=== PATIENT | female | born 1995 | race Caucasian/White ===

== ENCOUNTER → 2022-02-24 | Outpatient (CLI) | payer BC, SELFPAY ==
[2022-02-24 15:58] LABS: Absolute Neutrophil Count 6.5 X10^3/uL (2.0-7.7); Basophil# 0.04 X10^3/uL; Basophil% 0.4 % (0-1); Eosinophil# 0.07 X10^3/uL; Eosinophils% 0.7 % (0-5); Hematocrit 39.1 % (37-47); Hemoglobin 14.1 g/dL (12.0-15.0); Lymphocyte % 27.4 % (19-41); Mean Corp Hgb Conc 36.1 g/dL (32-36); Mean Corpuscular Volume 91.6 fL (81-99); Mean Platelet Vol. 10.1 fl (6.2-12.0); Monocyte# 0.75 X10^3/uL; Monocyte% 7.3 % (0-10); NRBC Flagged by Analyzer 0 % (0-5); Neutrophil # 6.52 X10^3/uL (2.7-7.7); Neutrophil % 63.9 % (47-70); Platelet Count 310 K/mm3 (150-450); RBC Distribution Width CV 11.5 % (11.6-14.6); RBC Distribution Width SD 38.4 fl (35.1-43.9); Red Blood Count 4.27 M/mm3 (4.2-5.4); White Blood Count 10.2 K/mm3 (4.4-11.0)
[2022-02-25 00:34] LABS: HIV - WCH Non-Reactive (Nonreactive); Hepatitis B Surface Antigen Non-Reactive (Nonreactive); Hepatitis C Antibody Non-Reactive (Nonreactive); Rubella IgG Reactive (Nonreactive); Syphilis Antibodies Non-reactive
[2022-02-26 10:49] LABS: V-Zoster IgG (Immunity) 1725 index (Immune >165)
[2022-02-26 22:06] LABS: Chlamydia By Nucleic Acid AMP Negative (Negative)
[2022-02-27 07:17] LABS: Gonococcus By Nucleic Acid AMP Negative (Negative)
[2022-03-02 15:56] LABS: HPV Reflexed? NOT INDICATED
== END | disposition home or self-care (01) ==
LOC: WOBLAB 14:49
PROVIDERS: Visit Provider Obstetrics & Gynecology
DX: Z34.81 Encounter for supervision of other normal pregnancy, first trimester (principal); N91.2 Amenorrhea, unspecified
CPT/HCPCS: 36415; 85025; 86703; 86762; 86780; 86787; 86803; 87086; 87088; 87340; 87491; 87591; 88175; G0145

== ENCOUNTER → 2022-06-28 | Outpatient (CLI) | payer BC, SELFPAY ==
[2022-06-28 16:08] LABS: Hematocrit 36.6 % (37-47); Hemoglobin 12.8 g/dL (12.0-15.0); Mean Corpuscular Hgb 32.7 pg (27.0-32.0); Mean Corpuscular Volume 93.4 fL (81-99); Mean Platelet Vol. 9.5 fl (6.2-12.0); Platelet Count 316 K/mm3 (150-450); RBC Distribution Width CV 12.4 % (11.6-14.6); RBC Distribution Width SD 42.6 fl (35.1-43.9); Red Blood Count 3.92 M/mm3 (4.2-5.4); White Blood Count 11.5 K/mm3 (4.4-11.0)
[2022-06-28 17:03] LABS: Glucose Challenge Gest 1H 50g 144 mg/dL (70-140)
== END | disposition home or self-care (01) ==
LOC: LABSPEC 15:15
PROVIDERS: Visit Provider Student in an Organized Health Care Education/Training Program
DX: Z34.82 Encounter for supervision of other normal pregnancy, second trimester (principal)
CPT/HCPCS: 36415; 82950; 85027

== ENCOUNTER → 2022-06-30 | Outpatient (CLI) | payer BC, SELFPAY ==
[2022-06-30 09:18] LABS: Glucose GTT-Gestation. Fasting 87 mg/dL (<105)
[2022-06-30 10:20] LABS: Glucose GTT-Gestational 1 Hr 150 mg/dL (<190)
[2022-06-30 11:43] LABS: Glucose GTT-Gestational 2 Hr 107 mg/dL (<165)
[2022-06-30 13:32] LABS: Glucose GTT-Gestational 3 Hr 91 L (<145)
== END | disposition home or self-care (01) ==
LOC: WOBLAB 08:37
PROVIDERS: Visit Provider Student in an Organized Health Care Education/Training Program
DX: O24.912 Unspecified diabetes mellitus in pregnancy, second trimester (principal); Z3A.00 Weeks of gestation of pregnancy not specified
CPT/HCPCS: 36415; 82951; 82952

== ENCOUNTER → 2022-09-06 | Outpatient (CLI) | payer BC, SELFPAY ==
[2022-09-06 10:07] LABS: Absolute Lymphocyte Count 1.62 X10^3/uL (0.83-4.51); Absolute Neutrophil Count 5.9 X10^3/uL (2.0-7.7); Basophil# 0.03 X10^3/uL; Basophil% 0.4 % (0-1); Eosinophil# 0.05 X10^3/uL; Eosinophils% 0.6 % (0-5); Hemoglobin 14.2 g/dL (12.0-15.0); Lymphocyte # 1.62 X10^3/ul (0.83-4.51); Lymphocyte % 19.7 % (19-41); Mean Corp Hgb Conc 34.6 g/dL (32-36); Mean Corpuscular Hgb 32.9 pg (27.0-32.0); Mean Corpuscular Volume 94.9 fL (81-99); Mean Platelet Vol. 9.7 fl (6.2-12.0); Monocyte# 0.58 X10^3/uL; NRBC Flagged by Analyzer 0 % (0-5); Neutrophil # 5.93 X10^3/uL (2.7-7.7); Neutrophil % 71.9 % (47-70); Platelet Count 245 K/mm3 (150-450); RBC Distribution Width CV 12.1 % (11.6-14.6); RBC Distribution Width SD 42.1 fl (35.1-43.9); Red Blood Count 4.32 M/mm3 (4.2-5.4); White Blood Count 8.2 K/mm3 (4.4-11.0)
[2022-09-06 11:23] LABS: Syphilis Antibodies Non-reactive
== END | disposition home or self-care (01) ==
LOC: WOBLAB 09:32
PROVIDERS: PCP Student in an Organized Health Care Education/Training Program; Visit Provider Student in an Organized Health Care Education/Training Program
DX: Z34.83 Encounter for supervision of other normal pregnancy, third trimester (principal)
CPT/HCPCS: 36415; 85025; 86780; 87081

== ENCOUNTER 2022-10-05 10:47 | Inpatient (IN) | payer BC, SELFPAY ==
[2022-10-05] VITALS (20 sets, daily range): BP systolic 110–133; BP diastolic 69–86; PULSE 65–85; TEMP 36.4–37.1; O2SAT 98; BMI 29.7
[2022-10-05 10:38] LABS: ROM Internal Control Test YES-OK TO RESULT pt. (Internal QC)
[2022-10-05 10:40] LABS: ROM Patient Test POSITIVE (Negative)
--- NOTE | 2022-10-05 11:43 | PCM.HP.BLA ---
History and Physical Date of Admission: 10/05/22 HPI: 27-year-old G1, P0 at 40/2 weeks, MILY 10/03/2022 by LMP, admitted for prelabor rupture of membranes. Patient noted some leaking last night and 1 hour of contractions. She is now feeling some contractions here today. Reports spotting. Reports movement. Denies headache or vision changes, chest pain or shortness of breath, nausea or vomiting, fevers or chills, diarrhea constipation. complicated by: Impaired glucose tolerance with failed 1 hour, normal 3-hour glucose tolerance test. 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: Denies Surgical history: Denies Medications: vitamin Allergies: Amoxicillin causes swelling Family history: Denies history of blood clots or bleeding disorders Social history: Denies tobacco, alcohol, drug use Review of system: Negative otherwise stated above Physical exam: Blood pressure 119/85, pulse 85, temp 98.8 ?F General: No acute distress, comfortable in bed HEENT: Normal cephalic/atraumatic, PERRLA Cardiorespiratory: No increased effort Abdomen: Soft, nontender, gravid Extremities: No edema Neurologic: Cranial nerves II through XII grossly intact, no focal deficits Musculoskeletal: Moves all extremities equally Cervical exam: In office around 938 closed/thick/high, small amount of pooling in the vagina scant blood heart rate:140/mod bren/+accel/no decel [place]: q5 Assessment/plan: 27-year-old G1, P0 at 40/2 weeks, MILY 10/03/2022 by LMP, admitted for prelabor rupture of membranes. complicated by: Impaired glucose tolerance with failed 1 hour, normal 3-hour glucose tolerance test. ?Admit for rupture of membranes. Will recheck cervix around 1330. If not making cervical change, will augment with Pitocin. ?Bedside ultrasound in office today confirms cephalic position. ? GBS negative ? Discussed results and plan of care with patient and bedside RN. All questions answered.
[2022-10-05 11:51] LABS: Absolute Lymphocyte Count 2.48 X10^3/uL (0.83-4.51); Absolute Neutrophil Count 7.4 X10^3/uL (2.0-7.7); Basophil# 0.03 X10^3/uL; Basophil% 0.3 % (0-1); Eosinophil# 0.04 X10^3/uL; Eosinophils% 0.4 % (0-5); Hematocrit 39.8 % (37-47); Hemoglobin 14.4 g/dL (12.0-15.0); Lymphocyte # 2.48 X10^3/ul (0.83-4.51); Mean Corp Hgb Conc 36.2 g/dL (32-36); Mean Corpuscular Hgb 33.5 pg (27.0-32.0); Mean Corpuscular Volume 92.6 fL (81-99); Mean Platelet Vol. 10.1 fl (6.2-12.0); Monocyte# 0.76 X10^3/uL; Monocyte% 7.1 % (0-10); NRBC Flagged by Analyzer 0 % (0-5); Neutrophil # 7.43 X10^3/uL (2.7-7.7); Neutrophil % 68.8 % (47-70); Platelet Count 247 K/mm3 (150-450); RBC Distribution Width CV 12.1 % (11.6-14.6); RBC Distribution Width SD 40.6 fl (35.1-43.9); White Blood Count 10.8 K/mm3 (4.4-11.0)
[2022-10-05 12:44] LABS: Syphilis Antibodies Non-reactive
[2022-10-05] MEDS: Lactated Ringers 1,000 ML 50 ML IV (14:15)
[2022-10-05] MEDS: Oxytocin 15 Units/NS 250ml 15 UNITS/250 ML IV.SOLN 2 UNITS IV (14:20)
--- NOTE | 2022-10-05 16:42 | PN.OBGYN_ITS ---
Subjective Subjective Comfortable on yoga ball at bedside Objective Data Objective Data Vital Signs: Vital Signs Temp Pulse BP 98.4 F 84 113/69 10/05/22 16:09 10/05/22 12:35 10/05/22 12:35 Weight: 76.204 kg Body Mass Index (BMI) 29.7 Intake & Output: Intake and Output for Last 24 Hours 10/03/22 10/04/22 10/05/22 23:59 23:59 23:59 Intake Total 5.06 / 5.06 Output Total 600 / 600 Balance -594.94 / -594.94 Lab / Micro Data Attestation: I reviewed the patient's lab results. Result Diagrams: 10/05/22 11:15 Labs: Laboratory Results - last 24 hr 10/05/22 10:10: Vag Amniotic Fld Detect POSITIVE H 10/05/22 11:15: WBC 10.8, RBC 4.30, Hgb 14.4, Hct 39.8, MCV 92.6, MCH 33.5 H, MCHC 36.2 H, RDW Std Deviation 40.6, RDW Coeff of [place] 12.1, Plt Count 247, MPV 10.1, Immature Gran % (Auto) 0.400, Neut % (Auto) 68.8, Lymph % (Auto) 23.0, [place] % (Auto) 7.1, Eos % (Auto) 0.4, Baso % (Auto) 0.3, Absolute Neuts (auto) 7.4, Absolute Lymphs (auto) 2.48, Nucleated RBC % 0 10/05/22 11:15: Blood Type O POSITIVE, Antibody Screen NEGATIVE 10/05/22 11:15: Syphilis Total Ab Non-reactive NST FHR Rate Baby A Baseline: 150 Variability:: Moderate Accelerations:: 15 x 15 Decelerations:: None FHR Category:: Category I Uterine Activity:: q3min Assessment & Plan (1) Spontaneous rupture of membranes: PLAN: 27-year-old G1 at 40/2 weeks admitted for prelabor rupture of membranes. Now being augmented with Pitocin. 1 cm at last cervical exam. Titrate Pitocin as tolerated, category 1 tracing.
[2022-10-05] MEDS: 0.9% Saline Lock 10 ML Syringe IV (23:41)
[2022-10-05] MEDS: fentaNYL 100 MCG/2 ML Ampul IV (23:41)
[2022-10-06] VITALS (46 sets, daily range): BP systolic 87–154; BP diastolic 43–91; PULSE 64–115; RESP 15–18; TEMP 35.6–37.4; O2SAT 97–100
[2022-10-06] MEDS: Ondansetron 4 MG/2 ML Vial IV ×2 (01:38→15:30)
[2022-10-06] MEDS: LACTATED RINGERS 500 ML 999 ML IV ×2 (02:10→03:47)
[2022-10-06] MEDS: Lactated Ringers 1,000 ML 50 ML IV (02:11)
[2022-10-06] MEDS: fentaNYL-bupivacaine (epidural) 100 ML BAG EPIDURAL (05:03)
[2022-10-06] MEDS: Amnioinfusion- 0.9% NS 1,000 ML IV.SOLN. INTRA-UTER (06:06)
--- NOTE | 2022-10-06 06:42 | PN.OBGYN_ITS ---
Subjective Subjective Patient restful in bed after epidural. Objective Data Objective Data Vital Signs: Vital Signs Temp Pulse BP Pulse Ox 98.4 F 86 99/61 100 10/06/22 06:40 10/06/22 06:40 10/06/22 06:40 10/06/22 05:30 Weight: 76.204 kg Body Mass Index (BMI) 29.7 Intake & Output: Intake and Output for Last 24 Hours 10/04/22 10/05/22 10/06/22 23:59 23:59 23:59 Intake Total 16.86 / 16.86 1830.40 / 1830.40 Output Total 1850 / 1850 Balance -1833.14 / -1833.14 1830.40 / 1830.40 Lab / Micro Data Result Diagrams: 10/05/22 11:15 Labs: Laboratory Results - last 24 hr 10/05/22 10:10: Vag Amniotic Fld Detect POSITIVE H 10/05/22 11:15: WBC 10.8, RBC 4.30, Hgb 14.4, Hct 39.8, MCV 92.6, MCH 33.5 H, MCHC 36.2 H, RDW Std Deviation 40.6, RDW Coeff of [place] 12.1, Plt Count 247, MPV 10.1, Immature Gran % (Auto) 0.400, Neut % (Auto) 68.8, Lymph % (Auto) 23.0, [place] % (Auto) 7.1, Eos % (Auto) 0.4, Baso % (Auto) 0.3, Absolute Neuts (auto) 7.4, Absolute Lymphs (auto) 2.48, Nucleated RBC % 0 10/05/22 11:15: Blood Type O POSITIVE, Antibody Screen NEGATIVE 10/05/22 11:15: Syphilis Total Ab Non-reactive Physical Exam Const alert, oriented x3 and no apparent distress Resp normal respiratory effort GI soft to palpation, non-tender and non-distended Inspection: gravid Narrative: 4.5 cm/60/-3, confirmed cephalic by BSUS. caput palpated towards maternal right, sutures at maternal left. Extremity no pedal edema Psych mental status grossly normal and affect normal NST FHR Rate Baby A Baseline: 150 Variability:: Moderate Accelerations:: 15 x 15 Decelerations:: Early, Late and Variable FHR Category:: Category II Uterine Activity:: q5 min Assessment & Plan (1) Spontaneous rupture of membranes: PLAN: Persistent category 2 heart rate tracing. We have tried decreasing Pitocin, amnioinfusion, turning Pitocin off. Without resolution of decelerations. heart rate decelerations vary between early decelerations, but more importantly persistent late and variable decelerations. We will plan for section due to intolerance of labor remote from delivery. All risk, benefits, alternatives discussed with the patient. Risk include but are not limited to: Risk of bleeding to the point of transfusion, infection, injury to surrounding tissue including bowel/bladder potentially requiring prolonged Matthews catheter use, VTE, ICU admission. Patient aware and consented. All questions answered. Gentamicin, clindamycin, azithromycin preoperatively.
[2022-10-06] MEDS: Acetaminophen 500 MG Tablet PO (06:47)
[2022-10-06] MEDS: Sodium Citrate/Citric Acid 30 ML UDC PO (06:49)
[2022-10-06] MEDS: Clindamycin 900 MG/50 ML BAG 75 MG IV (07:05)
--- NOTE | 2022-10-06 07:46 | EX.PCM.OBRPT ---
Maternal Data Information Final MILY: 10/03/22 Details Operative Information Date of Procedure: 10/06/22 Pre-Operative Diagnosis: Beatty intrauterine at term, intolerance of labor remote from delivery Post-Operative Diagnosis: Beatty intrauterine at term, intolerance of labor remote from delivery Indications Narrative: section due to intolerance of labor remote from delivery.? All risk, benefits, alternatives discussed with the patient.? Risk include but are not limited to: Risk of bleeding to the point of transfusion, infection, injury to surrounding tissue including bowel/bladder potentially requiring prolonged Matthews catheter use, VTE, ICU admission.? Patient aware and consented.? All questions answered.? Gentamicin, clindamycin, azithromycin preoperatively. Classification: RAVI Procedure Type: low transverse Type of Anesthesia: Epidural Estimated Blood Loss: 700cc Fluids Replaced: 1000cc Findings Description of Procedure: Procedure: Patient taken the operating room and epidural dose. Patient placed in supine position with left lateral tilt. Prepped and draped in usual sterile fashion. Pfannenstiel skin incision made with scalpel and carried down through subcutaneous tissue. Fascia nicked on either side of the midline with scalpel and extended bluntly. Lyssa clamps placed at the superior fascial edge was tented up and underlying rectus muscles were dissected off bluntly and sharply at midline. Lyssa clamps moved to the inferior fascial edge which was tented up underlying rectus muscles were tented up and the rectus muscles were dissected off bluntly and sharply at midline using Pereira scissors. Rectus muscles superiorly using a hemostat, peritoneum entered bluntly. Bladder blade placed. Low transverse uterine incision made with scalpel. Extended bluntly. Hand placed into the uterine cavity and head elevated to the hysterotomy. Bladder blade removed. Head delivered followed by body with the assistance of gentle fundal pressure. Nuchal cord x3 reduced, loose. Cord clamped and cut. Baby to nursing. Spontaneous delivery of placenta. Uterus exteriorized and cleared of all clots. Hysterotomy closed with a running stitch followed by second vertical imbricating stitch. Hemostatic with 1 ddfxyo-le-meqop suture. Uterus replaced in the abdominal cavity and hemostasis confirmed. Eleni placed over the hysterotomy. Peritoneum closed with a running stitch. Muscle reapproximated with horizontal mattress suture. Fascia closed with running stitch. Subcutaneous tissue irrigated. Skin closed with running subcuticular stitch. At the end of the procedure all needle, lap, sponge counts were correct. UOP: 200cc clear urine Infant A Gender: Male (1 minute): 8 (5 minute): 9 Complications Complications: None
[2022-10-06] MEDS: Oxytocin 15 Units/NS 250ml 15 UNITS/250 ML IV.SOLN 83 UNITS IV (09:00)
[2022-10-06] MEDS: Ketorolac 30 MG/ML Syringe IV ×3 (09:15→21:41)
--- NOTE | 2022-10-06 10:10 | NURSING ---
Epidural catheter removed with no resistance - blue tip intact.
[2022-10-06] MEDS: Acetaminophen 500 MG Tablet 1000 MG PO ×2 (12:20→18:18)
[2022-10-06] MEDS: 0.9% Saline Lock 10 ML Syringe IV (12:20)
[2022-10-06] MEDS: Lactated Ringers 1,000 ML 100 ML IV (12:23)
--- NOTE | 2022-10-06 15:20 | NURSING ---
Pt became nauseas and vomited 300 mls when she sat at the edge of her bed - BP stable - only able to have her take a couple steps at the side of the bed before having to have her sit back down.
--- NOTE | 2022-10-06 18:27 | NURSING ---
This RN helped pt up to bathroom - pt became lightheaded and nauseous again - got pt back to bed and symptoms resolved.
[2022-10-06] MEDS: Enoxaparin 40 MG/0.4 ML Syringe SC (20:29)
[2022-10-07] VITALS: BP 113/71; PULSE 91; RESP 16; TEMP 36.6; O2SAT 98
[2022-10-07 01:00] VITALS: BP 98/69; PULSE 75; RESP 18; TEMP 36.8; O2SAT 97
[2022-10-07] MEDS: 0.9% Saline Lock 10 ML Syringe IV (03:32)
[2022-10-07] MEDS: Ketorolac 30 MG/ML Syringe IV (03:32)
[2022-10-07 03:33] VITALS: BP 111/63; PULSE 88; RESP 15; TEMP 36.6; O2SAT 100
[2022-10-07 05:20] LABS: Hematocrit 33.6 % (37-47); Hemoglobin 11.7 g/dL (12.0-15.0); Mean Corp Hgb Conc 34.8 g/dL (32-36); Mean Corpuscular Hgb 33.2 pg (27.0-32.0); Mean Corpuscular Volume 95.5 fL (81-99); Mean Platelet Vol. 9.9 fl (6.2-12.0); Platelet Count 199 K/mm3 (150-450); RBC Distribution Width CV 12.4 % (11.6-14.6); RBC Distribution Width SD 42.5 fl (35.1-43.9); Red Blood Count 3.52 M/mm3 (4.2-5.4); White Blood Count 17.9 K/mm3 (4.4-11.0)
[2022-10-07] MEDS: Acetaminophen 500 MG Tablet 1000 MG PO ×3 (06:00→12:16)
--- NOTE | 2022-10-07 08:15 | DS.PCM_ITS ---
Discharge Summary Date of Admission: 10/05/22 Date of Discharge: 10/07/22 Summary: Patient arrived on 10/05/2022 with rupture membranes. Nonreassuring heart tones were noted and patient subsequently had primary section on 10/06/2022. Routine postoperative recovery. Discharge home on 10/07/2022 Meaningful Use Info Meaningful Use Diagnoses (Choose all that apply): None applicable Discharge Plan Admission Admit Date/Time: 10/05/22 10:47 Primary Reason for Your Visit: Spontaneous rupture membranes Attending Provider: Katy Kendrick Primary Care Provider: Katy Kendrick Instructions Additional Instructions / Restrictions: Regular diet. Okay to shower. No tub baths for 2 weeks. No lifting over 25 pounds for 2 to 3 weeks. No intercourse for 6 to 8 weeks. Call if fevers, chills, chest pain, shortness of breath. Follow-up 2 weeks postoperatively Discharge Orders/Prescriptions Prescriptions: New oxycodone 5 mg Tablet 5 mg PO Q6H PRN PRN (Reason: Pain Score 4-10/10) 4 Days Qty: 14 0RF Continued Prena1 True 30 mg iron- 1.4 mg-300 mg Combo Pack 1 pkg PO DAILY Discontinued [place] Oil 1,000 mg Capsule 1 cap PO DAILY Referrals / Follow Up: Katy Kendrick DO [Primary Care Provider] - Disposition Disposition (needs filled in before D/C Order can be placed): Home, Self Care
--- NOTE | 2022-10-07 08:17 | PN.OBGYN_ITS ---
Subjective Subjective No overnight complaints Objective Data Objective Data Vital Signs: Vital Signs Temp Pulse Resp BP Pulse Ox O2 Del Method 98 F 88 15 111/63 100 Room Air 10/07/22 03:33 10/07/22 03:33 10/07/22 03:33 10/07/22 03:33 10/07/22 03:33 10/07/22 03:33 Oxygen Delivery Method Room Air Weight: 168 lb Body Mass Index (BMI) 29.7 Intake & Output: Intake and Output for Last 24 Hours 10/05/22 10/06/22 10/07/22 23:59 23:59 23:59 Intake Total 16.86 / 16.86 3892.98 / 3892.98 Output Total 1850 / 1850 2415 / 2415 700 / 700 Balance -1833.14 / -1833.14 1477.98 / 1477.98 -700 / -700 Lab / Micro Data Result Diagrams: 10/07/22 05:07 Labs: Laboratory Results - last 24 hr 10/07/22 05:07: WBC 17.9 H, RBC 3.52 L, Hgb 11.7 L, Hct 33.6 L, MCV 95.5, MCH 33.2 H, MCHC 34.8, RDW Std Deviation 42.5, RDW Coeff of [place] 12.4, Plt Count 199, MPV 9.9 Physical Exam Const alert, oriented x3, no apparent distress, average body habitus, healthy appearing and well nourished HEENT normocephalic and moist oral mucous membranes Eyes PERRL Neck full ROM Resp normal respiratory effort, no retractions and no use of accessory muscles GI GI Narrative: Soft, nontender, bandage clean dry and intact Extremity normal to inspection, full ROM and no clubbing, cyanosis or edema Neuro moves all extremities and no focal motor deficits Psych mental status grossly normal, affect normal, speech normal and activity/motor behavior normal Assessment & Plan (1) delivery delivered: PLAN: Postop day 1 status post primary section for nonreassuring heart tones. Breast-feeding. Pain well controlled. Okay to discharge home today if okay with cyber security administrator
[2022-10-07 08:40] VITALS: BP 105/64; PULSE 96; RESP 18; TEMP 36.7
[2022-10-07] MEDS: Ibuprofen 600 MG Tablet PO (10:15)
[2022-10-07] MEDS: Senna/Docusate Sodium 1 Tablet PO (10:46)
[2022-10-07 13:34] VITALS: BP 98/69; PULSE 75; RESP 18; TEMP 36.7
== END 2022-10-07 14:15 | disposition home or self-care (01) | DRG 788 ==
LOC: WPOUT 10:49 → WP 10:49
PROVIDERS: Admitting Provider Student in an Organized Health Care Education/Training Program; PCP Student in an Organized Health Care Education/Training Program; Referring Provider Student in an Organized Health Care Education/Training Program; Visit Provider Student in an Organized Health Care Education/Training Program
DX: O76 Abnormality in fetal heart rate and rhythm complicating labor and delivery (principal); O42.92 Full-term premature rupture of membranes, unspecified as to length of time between rupture and onset of labor; O69.81X0 Labor and delivery complicated by cord around neck, without compression, not applicable or unspecified; Z3A.40 40 weeks gestation of pregnancy; Z37.0 Single live birth
CPT/HCPCS: 59025; 59050; 76815; 84112; 85025; 85027; 86780; 86850; 86900; 86901; 99221; J7030; J7120; A4216; G0378; J2405

== ENCOUNTER → 2023-08-18 | Outpatient (CLI) | payer OTHER, SELFPAY ==
--- OUTSIDE RECORDS SUMMARY | 2023-08-18 18:29 | XMS RPT_ITS | CCD ---
Author Name Unknown Address [address] [place] [address] Organization [facility] Care Team Providers Care Numerical Control Operator Name Role Phone CHRISTOPHER GALLARDO Unavailable Unavailable CALVIN, DASHAWN Bills Unavailable Unavailabl e CALVIN, [facility] Unavailable Unavailabl e [facility] Unavailable Unavailable ROB, DR MADAI Lacey Attending Unavaila ble ROB, DR MADAI Lacey Primary Care Unavaila ble ROB, DR MADAI Lacey Admitting Unavaila ble Problems Active Problems Problem Classification Problem Date Documented Da te Episodic/Chronic Unclassified (1 source) Unknown / UNK(Unknown) Onset: 01-22-2017 Unclassified (2 sources) ENCOUNTER FOR SCREENING FOR COVID-19; Translations: [ENCOUNTER FOR SCREENING FOR COVID-19] Onset: 04-09-2021 Past or Other Problems Problem Classification Problem Date Documented Da te Episodic/Chronic Unclassified (1 source) HAND INJ WORK RELATED Onset: 01-22-2017 Unclassified (1 source) ENCOUNTER FOR SCREENING FOR COVID-19; Translations: [ENCOUNTER FOR SCREENING FOR COVID-19] Onset: 04-09-2021 Results Test Name Value Interpretation Reference Range Facil ity Encounters Encounter Date Encounter Type Care Provider Facility Start: 04-09-2021 End: 04-09-[address] MADAI RIVAS [facility] Start: 02-07-2017 Ambulatory [facility] Fa [facility]ility[facility] Start: 01-24-2017 Ambulatory [facility] Start: 01-22-2017 Ambulatory [facility]il [facility] Start: 01-22-2017 End: 01-22-2017 Emergency department patient visit CHRISTOPHER GALLARDO Facility[facility] Payers Date Payer Category Payer Unknown [id number] Unknown [id number] Unknown Summary Purpose Family History No Family History Records FoundNo Family History Records FoundNo Family History Records FoundNo Family History Records Found Advance Directives No Advanced Directives Records FoundNo Advanced Directives Records FoundNo Advanced Directives Records FoundNo Advanced Directives Records Found Additional Source Comments INFORMATION SOURCE (unrecogn ized section and content) DATE CREATED AUTHOR AUTHOR'S ORGANIZ ATION 02/09/2020 [facility] DATE CREATED AUTHOR AUTHOR'S ORGANIZ ATION 04/16/2021 [facility] FOR RECORDS PERTAINING TO PATIENTS WHO ARE OR HAVE BEEN ENROLLED IN A CHEMICAL DEPENDENCY/SUBSTANCEABUSE PROGRAM, SOME INFORMATION MAY BE OMITTED. This clinical summary was aggregated from multiple sources. Caution should be exercised in using it in the provision of clinical care. This summary normalizes information from multiple sources, and as a consequence, information in this document may materially change the coding, format and clinical context of patient data. In addition, data may be omitted in some cases. CLINICAL DECISIONS SHOULD BE BASED ON THE PRIMARY CLINICAL RECORDS. [facility]. provides no warranty or guarantee of the accuracy or completeness of information in this document.
[2023-08-22 22:06] LABS: Chlamydia By Nucleic Acid AMP Negative (Negative); Gonococcus By Nucleic Acid AMP Negative (Negative)
== END | disposition home or self-care (01) ==
LOC: LABSPEC 13:36
PROVIDERS: PCP Student in an Organized Health Care Education/Training Program; Referring Provider Advanced Practice Midwife; Visit Provider Advanced Practice Midwife
DX: Z34.90 Encounter for supervision of normal pregnancy, unspecified, unspecified trimester (principal)
CPT/HCPCS: 87077; 87086; 87088; 87186; 87491; 87591

== ENCOUNTER → 2023-10-10 | Outpatient (CLI) | payer OTHER, SELFPAY ==
[2023-10-10 13:44] LABS: Absolute Lymphocyte Count 2.14 X10^3/uL (0.83-4.51); Basophil# 0.04 X10^3/uL; Basophil% 0.5 % (0-1); Eosinophil# 0.06 X10^3/uL; Eosinophils% 0.7 % (0-5); Hematocrit 38.7 % (37-47); Hemoglobin 13.6 g/dL (12.0-15.0); Lymphocyte # 2.14 X10^3/ul (0.83-4.51); Lymphocyte % 24.7 % (19-41); Mean Corp Hgb Conc 35.1 g/dL (32-36); Mean Corpuscular Hgb 31.7 pg (27.0-32.0); Mean Corpuscular Volume 90.2 fL (81-99); Mean Platelet Vol. 9.6 fl (6.2-12.0); Monocyte# 0.45 X10^3/uL; Monocyte% 5.2 % (0-10); NRBC Flagged by Analyzer 0 % (0-5); Neutrophil # 5.96 X10^3/uL (2.7-7.7); Neutrophil % 68.6 % (47-70); Platelet Count 328 K/mm3 (150-450); RBC Distribution Width CV 12.4 % (11.6-14.6); RBC Distribution Width SD 40.2 fl (35.1-43.9); Red Blood Count 4.29 M/mm3 (4.2-5.4); White Blood Count 8.7 K/mm3 (4.4-11.0)
[2023-10-10 14:51] LABS: HIV - WCH Non-Reactive (Nonreactive); Hepatitis B Surface Antigen Non-Reactive (Nonreactive); Hepatitis C Antibody Non-Reactive (Nonreactive); Rubella IgG Reactive (Nonreactive); Syphilis Antibodies Non-reactive
== END | disposition home or self-care (01) ==
LOC: LAB 12:03
PROVIDERS: Advanced Practice Midwife; Referring Provider Obstetrics & Gynecology; Visit Provider Obstetrics & Gynecology
DX: Z34.90 Encounter for supervision of normal pregnancy, unspecified, unspecified trimester (principal)
CPT/HCPCS: 85025; 86703; 86762; 86780; 86803; 86850; 86900; 86901; 87340

== ENCOUNTER → 2023-12-29 | Outpatient (CLI) | payer OTHER, SELFPAY ==
[2023-12-29 11:28] LABS: Glucose Challenge Gest 1H 50g 114 mg/dL (70-140)
== END | disposition home or self-care (01) ==
LOC: LAB 09:28
PROVIDERS: Referring Provider Advanced Practice Midwife; Visit Provider Advanced Practice Midwife
DX: Z13.1 Encounter for screening for diabetes mellitus (principal)
CPT/HCPCS: 36415; 82950

== ENCOUNTER → 2024-02-29 | Outpatient (CLI) | payer OTHER, SELFPAY | END | disposition home or self-care (01) | PROVIDERS: Referring Provider Advanced Practice Midwife; Visit Provider Advanced Practice Midwife | DX: O09.90 Supervision of high risk pregnancy, unspecified, unspecified trimester (principal); Z3A.00 Weeks of gestation of pregnancy not specified | CPT/HCPCS: 87077; 87081; 87186 ==

== ENCOUNTER → 2024-03-13 | Outpatient (CLI) | payer OTHER, SELFPAY ==
[2024-03-13 12:09] LABS: Absolute Lymphocyte Count 2.63 X10^3/uL (0.83-4.51); Absolute Neutrophil Count 6.9 X10^3/uL (2.0-7.7); Basophil# 0.03 X10^3/uL; Basophil% 0.3 % (0-1); Eosinophil# 0.06 X10^3/uL; Eosinophils% 0.6 % (0-5); Hematocrit 39.2 % (37-47); Hemoglobin 13.6 g/dL (12.0-15.0); Lymphocyte # 2.63 X10^3/ul (0.83-4.51); Lymphocyte % 25.4 % (19-41); Mean Corp Hgb Conc 34.7 g/dL (32-36); Mean Corpuscular Hgb 32.6 pg (27.0-32.0); Mean Platelet Vol. 9.9 fl (6.2-12.0); Monocyte# 0.68 X10^3/uL; Monocyte% 6.6 % (0-10); NRBC Flagged by Analyzer 0 % (0-5); Neutrophil # 6.91 X10^3/uL (2.7-7.7); Neutrophil % 66.5 % (47-70); Platelet Count 261 K/mm3 (150-450); RBC Distribution Width CV 12.4 % (11.6-14.6); RBC Distribution Width SD 42.5 fl (35.1-43.9); Red Blood Count 4.17 M/mm3 (4.2-5.4); White Blood Count 10.4 K/mm3 (4.4-11.0)
[2024-03-13 13:05] LABS: HIV - WCH Non-Reactive (Nonreactive); Syphilis Antibodies Non-reactive
== END | disposition home or self-care (01) ==
LOC: LAB 10:51
PROVIDERS: Referring Provider Advanced Practice Midwife; Visit Provider Advanced Practice Midwife
DX: O09.90 Supervision of high risk pregnancy, unspecified, unspecified trimester (principal); Z3A.00 Weeks of gestation of pregnancy not specified
CPT/HCPCS: 36415; 85025; 86703; 86780

== ENCOUNTER 2024-03-23 00:35 | Inpatient (IN) | payer OTHER, SELFPAY ==
[2024-03-22 23:03] VITALS: PULSE 146; O2SAT 98
[2024-03-22 23:05] VITALS: BP 116/72; PULSE 123
[2024-03-22 23:08] VITALS: PULSE 120; O2SAT 99
[2024-03-22 23:13] VITALS: PULSE 112; O2SAT 100
[2024-03-22 23:20] VITALS: BMI 29.7
[2024-03-22] MEDS: LACTATED RINGERS 500 ML 999 ML IV (23:40)
[2024-03-22 23:51] LABS: Absolute Lymphocyte Count 2.24 X10^3/uL (0.83-4.51); Absolute Neutrophil Count 13.3 X10^3/uL (2.0-7.7); Basophil# 0.05 X10^3/uL; Basophil% 0.3 % (0-1); Eosinophil# 0.02 X10^3/uL; Eosinophils% 0.1 % (0-5); Hematocrit 41.6 % (37-47); Hemoglobin 14.8 g/dL (12.0-15.0); Lymphocyte # 2.24 X10^3/ul (0.83-4.51); Lymphocyte % 13.4 % (19-41); Mean Corp Hgb Conc 35.6 g/dL (32-36); Mean Corpuscular Volume 92.7 fL (81-99); Mean Platelet Vol. 9.2 fl (6.2-12.0); Monocyte# 1.05 X10^3/uL; Monocyte% 6.3 % (0-10); NRBC Flagged by Analyzer 0 % (0-5); Neutrophil # 13.33 X10^3/uL (2.7-7.7); Neutrophil % 79.4 % (47-70); Platelet Count 262 K/mm3 (150-450); RBC Distribution Width CV 12.1 % (11.6-14.6); Red Blood Count 4.49 M/mm3 (4.2-5.4); White Blood Count 16.8 K/mm3 (4.4-11.0)
[2024-03-23] VITALS (41 sets, daily range): BP systolic 83–128; BP diastolic 46–80; PULSE 77–136; RESP 14–18; TEMP 36.1–37.7; O2SAT 97–100
--- NOTE | 2024-03-23 00:35 | HP.PCM.OB_ITS ---
HPI - General HPI Narrative MORRIS DESIR, is a 29 F who presents IAL regular ctx painful, with initial tachycardia and mild leukocytosis, tachycardia in the 170s. SROM since midnight. Maternal Data Information MILY Calculator 2 Estimated Delivery Date Method Current WG Current Estimate 03/27/24 LMP (Certain) 39w 3d PFSH PFS Medical History (Updated 03/23/24 @ 01:[address] 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 current occupational exposures/hazards: No pets and animals: Yes pets and animals: dog(s) history of recent travel: Yes details: - July out of state: Yes sexually active: Yes Smoking Status: Former smoker alcohol intake: current alcohol intake frequency: a few times a month substance use type: does not use well-balanced diet: daily or most days caffeine: Yes Type: coffee eating out: 1-3 times/week during the past year weight has: remained stable what type of physical activity do you participate in: weight training frequency: 3-4 times per week duration: 45-60 minutes/day seatbelt use: always do you feel safe at home: Yes additional social history: :Sulaiman - [employer] at [employer] History 2 Elective abortions Hx Para 1 Spontaneous abortions Hx # Term Pregnancies Ectopic pregnancies Hx # Pregnancies Multiple births # of living children 1 Past Pregnancies Del. Date Name GA/Weeks Outcome Route Bth Weight Gen Labor Lgth Anesthesia Del Locatn Provider FOB 10/06/22 Nate Desai live - full term 7lb 5 oz Male 16 hrs epidural [facility] Dr Katy Kendrick Sulaiman Delivery Date: 10/06/22 Last Updated by: Ann Warren RN Failed 1hr, Passed 3hr. C-sec d/t nuchal cord. Visit Details Expected Delivery Route/Plan tolac patient counseled regarding risks/benefits of trial of labor versus repeat . ACOG/uptodate education given to patient. 64.8 % likelihood of success per calculator TOLAC consent form signed: [] Labor Preferences- CB/BF classes: [] labor support person: [] labor intervention preferences: [] pain management options preferred: [] cut cord/dad catch: [] : [] PP control planned: [] discussed possible routes of delivery and associated risks: [] special requests: [] Plans Covid status: [] Flu vaccine: [] Tdap vaccine: declined Rhogam: na LARC form signed: done movement and labor precautions reviewed. Problem list reviewed and dated with the most current plan of care details and appropriate orders placed. Relevant counseling for the gestational age provided. Continue routine care and follow up unless otherwise noted in visit notes/problem list details OB Flowsheet Initial Weight: Not Recorded Date -?-?-?-?-?-?-?-?-?-?-?-?- EGA Weight BP Urine Prot -?-?-?-?-?-?-?-?-?-?-?-?- Glucose FHR FuHt Pres Dilation -?-?-?-?-?-?-?-?-?-?-?-?- Effaced St Visit Note 08/18/23 -?-?-?-?-?-?-?-?-?-?-?-?- 8w 2d 146 lb 6 oz 131/82 -?-?-?-?-?-?-?-?-?-?-?-?- 195 -?-?-?-?-?-?-?-?-?-?-?-?- KW- CRL cons wit h dates. deciding on NIPT. desires some appts in [facility]. discussed seeing physicians as well desires TOLAC. 09/01/23 -?-?-?-?-?-?-?-?-?-?-?-?- 10w 2d 147 lb 122/63 Negative -?-?-?-?-?-?-?-?-?-?-?-?- Negative 160 -?-?-?-?-?-?-?-?-?-?-?-?- LC- had some spo tting/cramping after intercourse. in for FHR check. + FHR via handheld us. 09/12/23 -?-?-?-?-?-?-?-?-?-?-?-?- 11w 6d 147 lb 8 oz 113/72 Nega tive -?-?-?-?-?-?-?-?-?-?-?-?- Negative 160 -?-?-?-?-?-?-?-?-?-?-?-?- KW- no vb/crampi lucretia. US ordered. would like NIPT testing. 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 + fht on handheld us today. 10/10/23 -?-?-?-?-?-?-?-?-?-?-?-?- 15w 6d 151 lb 119/78 -?-?-?-?-?-?-?-?-?-?-?-?- 145 -?-?-?-?-?-?-?-?-?-?-?-?- JV- pt to do NIP T today along with PNL. wants to attempt , had an allergic reaction to one of the abx during her cs and needs to see allergy for testing and possible pcn desensitization 11/09/23 -?-?-?-?-?-?-?-?-?-?-?-?- 20w 1d 154 lb 107/68 Negative -?-?-?-?-?-?-?-?-?-?-?-?- Negative 155 20 -?-?-?-?-?-?-?-?-?-?-?-?- KW-no vb/porter edge. had US-report pending. Will call and get allergy testing scheduled. 12/01/23 -?-?-?-?-?-?-?-?-?-?-?-?- 23w 2d 155 lb 105/67 Negative -?-?-?-?-?-?-?-?-?-?-?-?- Negative 150 24 -?-?-?-?-?-?-?-?-?-?-?-?- KW- no vb/crampi ng. good fm. desires fresh test for 28 week labs 12/29/23 -?-?-?-?-?-?-?-?-?-?-?-?- 27w 2d 157 lb 8 oz 110/73 -?-?-?-?-?-?-?-?-?-?-?-?- 147 27.5 -?-?-?-?-?-?-?-?-?-?-?-?- JV- lab asked link donahue if was supposed to get cbc hiv and syphilis with her gct and she said she wasn't sure so did not do them. will need to go back next visit and get them done. GCT pending. 01/18/24 -?-?-?-?-?-?-?-?-?-?-?-?- 30w 1d 160 lb 104/69 Negative -?-?-?-?-?-?-?-?-?-?-?-?- Negative 140 29 -?-?-?-?-?-?-?-?-?-?-?-?- SM- no vb lof go od fm no regular ctx 01/30/24 -?-?-?-?-?-?-?-?-?-?-?-?- 31w 6d 164 lb 102/68 Negative -?-?-?-?-?-?-?-?-?-?-?-?- Negative 140 32 -?-?-?-?-?-?-?-?-?-?-?-?- KW- no vb/lof/ct x. good fm. KW- no vb/lof/ctx. good fm. Has allergy testing in 3 weeks. Consider anesthesia consult after having results. Discussed with pt the 2 views that were not seen on the anatomy scan. wants to call to determine cost of follow up US prior to deciding if she wants the follow up. 02/15/24 -?-?-?-?-?-?-?-?-?--?-?-?- 34w 1d 165 lb 113/71 -?-?-?-?-?-?-?-?-?-?-?-?- 130 34 -?-?-?-?-?-?-?-?-?-?-?-?- KW- no vb/lof/re g ctx. good fm. Allergy testing tomorrow. 02/29/24 -?-?-?-?-?-?-?-?-?-?-?-?- 36w 1d 167 lb 2 oz 97/68 -?-?-?-?-?-?-?-?-?-?-?-?- 130 35 1 -?-?-?-?-?-?-?-?-?-?-?-?- -3 KW- no v b/lof/ reg ctx. good fm. GBS today. had allergy testing-will not test during . Discussed 41 week RC/S if no spon labor-message sent to schedule. 03/07/24 -?-?-?-?-?-?-?-?-?-?-?-?- 37w 1d 168 lb 114/74 Negative -?-?-?-?-?-?-?-?-?-?-?-?- Negative 140 36 Cephalic 1 -?-?-?-?-?-?-?-?-?-?-?-?- -3 no vb/lo f/regular ctx. had some contractions last night and this morning. Noticed increased discharge over as well. labor precautions. C/S scheduled per nursing 03/13/24 -?-?-?-?-?-?-?-?-?-?-?-?- 38w 0d 168 lb 2 oz 108/74 -?-?-?-?-?-?-?-?-?-?-?-?- 145 38 Cephalic 1 -?-?-?-?-?-?-?-?-?-?-?-?- 0 -3 JV- head f loating. no lof ,vaginal bleeding, or dec fm. may attempt membrane sweep next visit. pt understands may not be successful 03/22/24 -?-?-?-?-?-?-?-?-?-?-?-?- 39w 2d 169 lb 100/74 Negative -?-?-?-?-?-?-?-?-?-?-?-?- Negative 145 39 Cephalic 1 .5 -?-?-?-?-?-?-?-?-?-?-?-?- 50 -2 SM- no vb lof good fm irregular ctx 03/23/24 -?-?-?-?-?-?-?--?-?-?-?-?- 39w 3d 168 lb 116/72 128/78 121/78 107/60 -?-?-?-?-?-?-?-?-?-?-?-?- -?-?-?-?-?-?-?-?-?-?-?-?- NST FHR Rate Baby A Baseline: 170 Variability:: Moderate Accelerations:: 15 x 15 Decelerations:: None NST Reactive:: Yes FHR Category:: Category I Uterine Activity:: q3 ROS Constitutional Constitutional: Reports systems reviewed and no addt'l complaints, except as documented ENT HEENT: Reports systems reviewed and no addt'l complaints, except as documented Cardiovascular Cardiovascular: Reports systems reviewed and no addt'l complaints, except as documented Respiratory/Chest Respiratory/Chest: Reports systems reviewed and no addt'l complaints, except as documented Gastrointestinal Gastrointestinal: Reports systems reviewed and no addt'l complaints, except as documented and nausea; Denies abdominal pain Genitourinary Genitourinary: Reports systems reviewed and no addt'l complaints, except as documented, contractions Details: present and frequency (regular ) and movement Details: present Musculoskeletal Musculoskeletal: Reports systems reviewed and no addt'l complaints, except as documented Integumentary Integumentary: Reports as per HPI Neurologic Neurologic: Reports systems reviewed and no addt'l complaints, except as documented Endocrine Endocrinology: Reports systems reviewed and no addt'l complaints, except as documented Vital Signs Vital Signs Vital Signs: 03/22/24 23:03 03/22/24 23:03 03/22/24 23:05 Pulse Rate 146 H Blood Pressure 116/72 BP Systolic 116 BP Diastolic 72 Pulse Ox 98 03/22/24 23:05 03/22/24 23:08 03/22/24 23:08 Pulse Rate 123 H 120 H Blood Pressure BP Systolic BP Diastolic Pulse Ox 99 03/22/24 23:13 03/22/24 23:13 Pulse Rate 112 H Blood Pressure BP Systolic BP Diastolic Pulse Ox 100 Weight Weight: 168 lb Body Mass Index (BMI) 29.7 Physical Exam Const alert, oriented x3 and healthy appearing Constitutional Narrative: uncomfortable with contractions HEENT normocephalic and moist oral mucous membranes Head and Scalp: atraumatic Neck full ROM, no lymphadenopathy, supple and thyroid normal General: trachea midline Thyroid: thyroid normal Lymph Lymphatic: no lymphadenopathy noted Chest inspection of chest normal Resp normal respiratory effort Cardio regular rate GI normal to inspection, nondistended, normoactive bowel sounds, soft to palpation and non-tender Inspection: gravid external exam normal Bimanual Exam - Vag & Uterus: uterus non-tender Manual OB Exam: estimated gestational size appropriate, presentation cephalic, dilated, effaced and station Extremity normal to inspection General Extremity: Negative for edema Skin no rashes or lesions noted Neuro deep tendon reflexes 2+ bilaterally Motor Exam: strength 5/5 throughout and clonus absent Psych mental status grossly normal Labs Labs Labs: Blood Type O POSITIVE Antibody Screen NEGATIVE Hct 41.6 % (37-47) Hgb 14.8 g/dL (12.0-15.0) Syphilis Total Ab Non-reactive VZV IgG Antibody 1725 index (Immune >165) Rubella IgG Antibody Reactive (Nonreactive) Hep Bs Antigen Non-Reactive (Nonreactive) Hepatitis C Antibody Non-Reactive (Nonreactive) Chlamydia DNA (DILCIA) Negative (Negative) N.gonorrhoeae DNA (DILCIA) Negative (Negative) HIV 1&2 Antibody Non-Reactive (Nonreactive) Glucose 1 Hr 50 gm 114 mg/dL (70-140) Gest Glucose Tolerance MG/DL Assessment & Plan (1) depression: COMMENT: jimmy (2) : QUALIFIERS: Weeks of gestation: 39 weeks Qualified Code(s): Z3A.39 - 39 weeks gestation of COMMENT: NIPT low risk, Discussed genetic/carrier testing. anatomy reveiwed. (3) Supervision of high-risk : COMMENT: PRR, , MILY 03/27/24, gender surprise for PC: Payam, : Sulaiman (4) Nausea & vomiting: (5) Positive GBS test: COMMENT: treat in labor (6) History of delivery affecting : COMMENT: desires TOLAC RLTCS scheduled for 04/03 @ 7:10 with JV (7) Allergic reaction: COMMENT: throat closed during - took gopal rao azith. - recommend vanc. allergy consult- on 02/15 office note obtained from patient. they will not test during . (8) Intrapartum fever: PLAN: Plan Patient presents IAL, plan expectant management for , pitocin/AROM PRN if needed. Pain management: plans epidural. GBS pos and fever, tachycardia- give ertapenem per pharmacy. Management of any complications: none I have reviewed the [facility] and made any clinically relevant updates.
[2024-03-23] MEDS: Lactated Ringers 1,000 ML 50 ML IV (01:00)
[2024-03-23] MEDS: Acetaminophen 500 MG Tablet PO (01:06)
[2024-03-23] MEDS: Ertapenem Sod 1 GM in 0.9% Normal Saline (50mL MB+) 50 ML IV (01:06)
[2024-03-23] MEDS: fentaNYL-bupivacaine (epidural) 100 ML BAG EPIDURAL (01:10)
--- NOTE | 2024-03-23 01:46 | PN_ITS ---
Progress Note temp 99.8, IVFs and ertapenem infusing, s/p tylenol, s/p epidural, now 3-4/80/-2. internal monitors and vila catheter placed. 180 min to moderate variability reactive, positive scalp stim early decelerations, periodic mild variables cat II tracing [place]: q2 regular exp management, will give time to allow tachycardia resolve with antibiotics and IVFs, patient is making cervical change, no significant vaginal bleeding present.
[2024-03-23] MEDS: Sodium Citrate/Citric Acid 30 ML UDC PO (02:56)
--- NOTE | 2024-03-23 03:00 | PCM.PN.BLA ---
Progress Note initially discussed with patient at 215 persistent tachycardia with normal temp after IV antibiotics, concern that there is something other than infeciton going on, positive scalp stim so patient asked for additional time, after another half hour she is still 3 cm and persistent tachycardia with now more minimal variabilty, scalp stim still present but I recommend proceeding with due to remote from delivery, patient agreeable now.
[2024-03-23] MEDS: Ketorolac 30 MG/ML Syringe IV ×4 (05:24→23:34)
--- NOTE | 2024-03-23 07:39 | EX.PCM.OBRPT ---
Assessment & Plan (1) Intrapartum fever: (2) Active labor at term: (3) : QUALIFIERS: Weeks of gestation: 39 weeks Qualified Code(s): Z3A.39 - 39 weeks gestation of COMMENT: NIPT low risk, Discussed genetic/carrier testing. anatomy reveiwed. (4) Supervision of high-risk : COMMENT: PRR, , MILY 03/27/24, gender surprise for PC: Payam, : Sulaiman (5) Positive GBS test: COMMENT: treat in labor (6) History of delivery affecting : COMMENT: desires TOLAC RLTCS scheduled for 04/03 @ 7:10 with JV Maternal Data Information MILY Calculator Estimated Delivery Date Method Current WG Current Estimate 03/27/24 LMP (Certain) 39w 3d Final MILY Source: LMP Gestational age: 39 Details Operative Information Date of Procedure: 03/23/24 Pre-Operative Diagnosis: see a/p diagnoses Post-Operative Diagnosis: same Indications Narrative: surgeon: Kelsie Talavera MD Procedure Type: low transverse erosion control specialist #1: Bren Steele Type of Anesthesia: Epidural Special Medications: none Antibiotic Given: - (ertapenem) Drain: Matthews to straight drain Estimated Blood Loss: 600 Fluids Replaced: crystalloid Procedure Start Time: 03:02 Procedure Stop Time: 04:11 Findings Description of Procedure: The patient was placed in the dorsal supine position with leftward tilt. Patient was prepped and draped in the normal sterile fashion. Pfannenstiel skin incision was made with the scalpel and carried through to the underlying layer of fascia with the scalpel. Fascia was nicked in the midline and the incision extended laterally. The rectus bellies were dissected off superiorly and inferiorly with out complication both sharply and bluntly. The peritoneum was entered digitally. The incision was stretched, uterus was noted to be sginifciantly thinning on the left side, and a low transverse uterine incision was made with the scalpel. The 's head was delivered atraumatically followed by the anterior and posterior shoulders without complication the rest of the infant delivered. The cord was clamped and cut and the was handed off to awaiting nurse. The placenta was delivered spontaneously immediately following and was noted to be intact and have a three-vessel cord. The uterus was exteriorized cleared of all clots and debris, the uterine incision was noted to be stellate due to weakness in the uterus, and the incision was closed in a single layer closure using #1 Monocryl. The ovaries and fallopian tubes were noted to be within normal limits. The uterus was returned to the maternal abdomen and gutters were cleared of all clots and debris. The peritoneum was closed with 3-0 Monocryl in a running fashion. Gloves were changed prior to fascial closure. Fascia was closed with 0 PDS in a running fashion. Subcutaneous tissue was copiously irrigated and the skin was closed with 3-0 Monocryl in a subcuticular fashion. Mepilex dressing was applied without complication. Patient was taken to recovery in stable condition. It was discussed with the patient that based on the clinical information obtained during this encounter, combined with her history, at this time I would recommend cesareans for future deliveries if further pregnancies are desired. Placental Delivery Description: Spontaneous Placenta Disposition: [facility] Cord Vessel Description: 3 Vessels Delayed Cord Clamping: Yes Complications Risks of Surgery Discussed w/Patient: Bleeding, Infection, Need for Future C-Sections and Injury to surrounding structure(s) including bowel and bladder Complications: none Admit VTE Documentation VTE Present on Admission: No VTE Mechan Device Prophylaxis: SCD's Procedures Urinary/Genital [id number]: 77411 Delivery [facility]
--- NOTE | 2024-03-23 07:43 | DCINST_ITS ---
Discharge Instructions Diet Discharge Diet: No restrictions Activity Discharge Activity: May Not Drive (for 2 weeks or while taking narcotic pain medications.), May Shower and May Take a Tub Bath (in 7 days) May shower in (days): 0 May resume sexual activity in: 4-6 weeks Weight Bearing Status: Full weight bearing Lifting Restrictions: 20 pounds Dressing / Incision Call your doctor if your incision/area has: Continuous Slow Oozing, Sudden Increased Bleeding, Increased Pain/ Swelling, Increased Redness and Foul Smelling Discharge Call your doctor if you observe: Fever of 101 or Higher and Using more than 1 pad per hour (for 2 hours) Suture Line Care: Avoid Pulling/Pushing and Avoid Pinching/Bending Cleanse incision/area with: Soap & Water and Keep Dressing Clean & Dry Follow Up Care Please Follow Up With: Kelsie Talavera MD When: Call [phone] to make an appointment for an incision check in 1-2 weeks. Test Results: Test results from this visit will be discussed in further detail at your follow- up appointment, if applicable. Discharge Plan Admission Admit Date/Time: 03/23/24 00:35 Attending Provider: Kelsie Talavera Primary Care Provider: Care Physician,Andra Primary Discharge Orders/Prescriptions Prescriptions: New oxycodone-acetaminophen [Percocet] 5-325 mg tablet 1 tab PO Q6H PRN (Reason: pain) 7 Days Qty: 10 0RF naproxen 500 mg tablet 500 mg PO BID PRN PRN (Reason: Pain) Qty: 30 1RF No Action Prena1 True 30 mg iron- 1.4 mg-300 mg Combo Pack 1 pkg PO DAILY Referrals / Follow Up: Care PhysicianAndra Primary [Primary Care Provider] - Disposition Disposition (needs filled in before D/C Order can be placed): Home, Self Care
--- NOTE | 2024-03-23 08:17 | PLAC_PTH ---
PATIENT: MORRIS DESIR LOC: [facility] U#:[id number] AGE/SX: 29/F ROOM: WP005 RE03/23/[address]: Dr. Kelsie Talavera MD : 1995 BED: 1 DIS: 03/25/2024 SPEC #: [id number] RECD: 03/23/24 09:00 STATUS: ROJAS JALIL #: [id number] STEPHEN: 03/23/24 08:[address]: Kelsie Talavera DEPT: SURGICAL PATHOLOGY RECD BY: Madhu Martinez ENTERED: 03/23/24 11:39 SP TYPE: PLACENTA OT DR: No Primary Care Phys Tissues: Placenta, NOS Procedures: Surgery Specimen Level V HEADER OPERATION: Repeat section PRE-OP DIAGNOSIS: Delivery TISSUE SUBMITTED: Placenta MICROSCOPIC DIAGNOSIS Placenta: Placental disc - third trimester placenta (533 gm). - Acute vasculitis of subamnitoic blood vessels Membranes - Acute chorioamnionitis. Umbilical cord - three blood vessels and mild acute funisitis. SJ:mr 03/27/2024 MICROSCOPIC DESCRIPTION Slides are reviewed. GROSS DESCRIPTION SPECIMEN: PLACENTA / CLINICAL INFORMATION: A. Weight: 3.71 kg B. Gestational Age: 39 weeks C. Sex: Female PLACENTAL WEIGHT (POST FIXATION): 533 gm PLACENTAL DIMENSIONS: 20.0 x 19.0 x 3.0cm PLACENTAL SHAPE: Ovoid to triangular PLACENTAL WEIGHT FOR GESTATIONAL AGE: Within 10-99th percentile MEMBRANES - Present A. Insertion: Marginal B. Site of rupture from edge: at the margin of placental disc C. Color of membrane: Painting-ma D. Abnormalities: None UMBILICAL CORD - Present A. Color: Painting-ma B. Insertion: Paracentral C. Length: 33.0cm D. Diameter: 1.4 cm E. Number of vessels: Three F. Abnormalities: None PLACENTAL DISC - Present A. Color of surface: Painting-ma B. surface abnormalities: None C. Maternal cotyledons: Intact with minimal tears D. Attached retro placental clot: No clot E. Cut surface: Dark red and spongy F. Lesions: None G. Separate clot: Absent SECTIONS SUBMITTED: (6 cassettes) 1. Membrane roll 2. Cord, maternal end 3. Cord, end 4. Placental disc, and maternal surfaces 5. Placental disc, and maternal surfaces 6. Placental disc, and maternal surfaces SJ. 03/26/2024 TC:2 CPT: 49480
[2024-03-23] MEDS: Acetaminophen 500 MG Tablet 1000 MG PO ×3 (08:37→20:55)
[2024-03-23] MEDS: Senna/Docusate Sodium 1 Tablet PO (11:24)
--- NOTE | 2024-03-23 14:23 | NURSING ---
epidural catheter removed. blue tip intact
[2024-03-23] MEDS: Enoxaparin 40 MG/0.4 ML Syringe SC (16:15)
[2024-03-24 02:10] VITALS: PULSE 84; RESP 16; O2SAT 98
[2024-03-24 03:32] VITALS: BP 101/70; PULSE 81; RESP 16; TEMP 36.7; O2SAT 99
[2024-03-24] MEDS: Acetaminophen 500 MG Tablet 1000 MG PO ×4 (03:34→20:49)
[2024-03-24] MEDS: Naproxen 500 MG Tablet PO ×3 (05:06→20:49)
[2024-03-24 05:20] LABS: Hematocrit 40.4 % (37-47); Hemoglobin 13.7 g/dL (12.0-15.0); Mean Corp Hgb Conc 33.9 g/dL (32-36); Mean Corpuscular Hgb 32.7 pg (27.0-32.0); Mean Corpuscular Volume 96.4 fL (81-99); Mean Platelet Vol. 9.4 fl (6.2-12.0); Platelet Count 220 K/mm3 (150-450); RBC Distribution Width CV 12.8 % (11.6-14.6); RBC Distribution Width SD 45.1 fl (35.1-43.9); Red Blood Count 4.19 M/mm3 (4.2-5.4); White Blood Count 16.6 K/mm3 (4.4-11.0)
--- NOTE | 2024-03-24 06:13 | PN.OBGYN_ITS ---
Subjective Subjective Patient doing well without complaints. Tolerating PO. Ambulating and voiding without difficulty. feeding well. Denies chest pain, shortness of breath, calf pain/swelling, fevers, chills, lightheadedness. Objective Data Objective Data Vital Signs: Vital Signs Temp Pulse Resp BP Pulse Ox O2 Del Method 98.0 F 81 16 101/70 99 Room Air 03/24/24 03:32 03/24/24 03:32 03/24/24 03:32 03/24/24 03:32 03/24/24 03:32 03/24/24 03:32 Oxygen Delivery Method Room Air Weight: 168 lb Body Mass Index (BMI) 29.7 Intake & Output: Intake and Output for Last 24 Hours 03/22/24 03/23/24 03/24/24 23:59 23:59 23:59 Intake Total 1435 / 1435 Output Total 3850 / 3850 Balance -2415 / -2415 Lab / Micro Data 03/24/24 05:11 Labs: Laboratory Results - last 24 hr 03/24/24 05:11: WBC 16.6 H, RBC 4.19 L, Hgb 13.7, Hct 40.4, MCV 96.4, MCH 32.7 H , MCHC 33.9, RDW Std Deviation 45.1 H, RDW Coeff of [place] 12.8, Plt Count 220, MPV 9.4 ROS Constitutional Constitutional: Reports systems reviewed and no addt'l complaints, except as documented Cardiovascular Cardiovascular: Reports systems reviewed and no addt'l complaints, except as documented Respiratory/Chest Respiratory/Chest: Reports systems reviewed and no addt'l complaints, except as documented Gastrointestinal Gastrointestinal: Reports systems reviewed and no addt'l complaints, except as documented Physical Exam Const alert, oriented x3 and no apparent distress HEENT Head and Scalp: atraumatic Resp normal respiratory effort GI soft to palpation and non-tender Inspection: incision intact, healing well and drainage (none) Bimanual Exam - Vag & Uterus: uterus non-tender Uterus Palpation: uterus fundus firm (below Umbilicus) Assessment & Plan (1) delivery delivered: COMMENT: SM RLTCS fever 39 ial srom girl Yasmeen PLAN: Plan s/p LTCS PPD # 1 1. routine post care 2. breast feeding- support given 3. rh positive 4. rubella immune
[2024-03-24 08:25] VITALS: BP 101/67; PULSE 85; RESP 16; TEMP 36.2; O2SAT 99
[2024-03-24] MEDS: Senna/Docusate Sodium 1 Tablet PO (09:52)
[2024-03-24 14:00] VITALS: BP 112/73; PULSE 77; RESP 14; TEMP 36.6; O2SAT 99
[2024-03-24 14:43] LABS: Syphilis Antibodies Non-reactive
[2024-03-24] MEDS: Enoxaparin 40 MG/0.4 ML Syringe SC (16:00)
[2024-03-24 20:51] VITALS: BP 114/68; PULSE 75; RESP 16; TEMP 36.8; O2SAT 98
[2024-03-25 02:11] VITALS: BP 93/62; PULSE 72; RESP 16; TEMP 36.6; O2SAT 99
[2024-03-25] MEDS: Acetaminophen 500 MG Tablet 1000 MG PO ×2 (03:34→09:41)
[2024-03-25] MEDS: Naproxen 500 MG Tablet PO (05:04)
[2024-03-25 08:06] VITALS: BP 103/72; PULSE 81; RESP 16; TEMP 36.6; O2SAT 99
--- NOTE | 2024-03-25 09:23 | PCM.PN.OB ---
Subjective Subjective Patient doing well without complaints. Tolerating PO. Ambulating and voiding without difficulty. feeding well. Denies chest pain, shortness of breath, calf pain/swelling, fevers, chills, lightheadedness. Objective Data Objective Data Vital Signs: Vital Signs Temp Pulse Resp BP Pulse Ox O2 Del Method 97.8 F 81 16 103/72 99 Room Air 03/25/24 08:06 03/25/24 08:06 03/25/24 08:06 03/25/24 08:06 03/25/24 08:06 03/25/24 08:06 Oxygen Delivery Method Room Air Weight: 168 lb Body Mass Index (BMI) 29.7 Intake & Output: Intake and Output for Last 24 Hours 03/23/24 03/24/24 03/25/24 23:59 23:59 23:59 Intake Total 1435 / 1435 Output Total 3850 / 3850 Balance -2415 / -2415 Lab / Micro Data 03/24/24 05:11 Labs: Laboratory Results - last 24 hr 03/24/24 05:11: Syphilis Total Ab Non-reactive ROS Constitutional Constitutional: Reports systems reviewed and no addt'l complaints, except as documented Cardiovascular Cardiovascular: Reports systems reviewed and no addt'l complaints, except as documented Respiratory/Chest Respiratory/Chest: Reports systems reviewed and no addt'l complaints, except as documented Gastrointestinal Gastrointestinal: Reports systems reviewed and no addt'l complaints, except as documented Physical Exam Const alert, oriented x3 and no apparent distress HEENT Head and Scalp: atraumatic Resp normal respiratory effort GI soft to palpation and non-tender Inspection: incision intact, healing well and drainage (none) Bimanual Exam - Vag & Uterus: uterus non-tender Uterus Palpation: uterus fundus firm (below Umbilicus) Assessment & Plan (1) delivery delivered: COMMENT: SM RLTCS fever 39 ial srom girl Yasmeen PLAN: Plan s/p LTCS PPD # 2 1. routine post care 2. breast feeding- support given 3. rh positive 4. rubella immune
[2024-03-25] MEDS: Senna/Docusate Sodium 1 Tablet PO (09:41)
[2024-03-28 00:12] LABS: Pathology Specimen OB SEE PATHOLOGY REPORT
== END 2024-03-25 10:35 | disposition home or self-care (01) | DRG 786 ==
LOC: WPOUT 00:46 → WP 00:46
PROVIDERS: Admitting Provider Obstetrics & Gynecology; Referring Provider Obstetrics & Gynecology; Visit Provider Obstetrics & Gynecology
DX: O34.211 Maternal care for low transverse scar from previous cesarean delivery (principal); O41.1230 Chorioamnionitis, third trimester, not applicable or unspecified; O75.2 Pyrexia during labor, not elsewhere classified; O42.02 Full-term premature rupture of membranes, onset of labor within 24 hours of rupture; O76 Abnormality in fetal heart rate and rhythm complicating labor and delivery; O99.824 Streptococcus B carrier state complicating childbirth; Z37.0 Single live birth; Z3A.39 39 weeks gestation of pregnancy; Z87.59 Personal history of other complications of pregnancy, childbirth and the puerperium; Z87.891 Personal history of nicotine dependence
CPT/HCPCS: 59025; 59050; 85025; 85027; 86780; 86850; 86900; 86901; 88307; 99221; J7120; G0378; J2405